=== PATIENT | female | born 1940 | race Two or more races ===

== ENCOUNTER 2017-07-14 01:18 | Inpatient (IN) | payer MEDICARE, OTHER ==
[~2017-07-14] VITALS: Ht 162.6 cm; Wt 68.9 kg
[2017-07-14] VITALS (8 sets, daily range): BP systolic 112–146; BP diastolic 62–74
--- NOTE | 2017-07-14 01:50 | NUR ---
PT BIB [facility] WITH A C/O RT HIP PAIN S/P STUBBING HER TOE WHILE GETTING OUT OF THE SHOWER AT 2300 AND TWISTING IN AN AWKWARD POSITION. PT IS AA&O X4. PT TRIAGED AND TAKEN TO ROOM #17.
--- NOTE | 2017-07-14 01:53 | NUR ---
20G IV STARTED IN LFA.
[2017-07-14] MEDS ORDERED: ONDANSETRON HCL/PF 4 MG/2 ML VIAL ONE (01:55)
[2017-07-14] MEDS ORDERED: MORPHINE SULFATE INJ 4 MG/ML DISP.SYRIN ONE ×3 (01:55→06:05)
[2017-07-14] MEDS ORDERED: ONDANSETRON HCL/PF 4 MG/2 ML VIAL IVP ONE (02:00)
[2017-07-14] MEDS ORDERED: MORPHINE SULFATE INJ 2 MG/ML DISP.SYRIN IV ONE (02:00)
--- NOTE | 2017-07-14 02:00 | NUR ---
XRAY IN PROGRESS AT THE BEDSIDE.
--- NOTE | 2017-07-14 02:23 | NUR ---
LOG MANAGER FOR [facility] WAS PAGED
[2017-07-14 02:34] LABS: BASOPHILS % (AUTO) 0.4 % (0.0-2.0); EOSINOPHILS # (AUTO) 0.1 /CMM (0.0-0.7); EOSINOPHILS % (AUTO) 1.1 % (0.0-6.0); HEMATOCRIT 35 % (33-45); HEMOGLOBIN 12.3 g/dL (11.5-14.8); LYMPHOCYTES # (AUTO) 2.1 /CMM (0.8-4.8); MEAN CORPUSCULAR HEMOGLOBIN 33 PG (26.0-33.0); MEAN CORPUSCULAR HGB CONC 35 g/dl (31.0-36.0); MEAN CORPUSCULAR VOLUME 95 fL (82-100); MONOCYTES # (AUTO) 0.9 /CMM (0.1-1.30); MONOCYTES % (AUTO) 8.3 % (2.0-12.0); NEUTROPHILS # (AUTO) 8.2 /CMM (1.8-8.9); NEUTROPHILS % (AUTO) 72.2 % (43.0-81.0); PLATELET COUNT (AUTO) 257 /CMM (150-450); RDW COEFFICIENT OF VARIATION 14.1 (11.5-15.0); WHITE BLOOD COUNT (AUTO) 11.4 K/uL (4.3-11.0)
[2017-07-14 02:43] LABS: CALCIUM, SERUM 9.1 mg/dL (8.5-10.1); CARBON DIOXIDE 25 mmol/L (21-32); CHLORIDE 105 mmol/L (98-107); GLUCOSE 128 mg/dL (74-106); POTASSIUM 4.2 mmol/L (3.5-5.1); SODIUM SERUM 142 mmol/L (136-145); UREA NITROGEN, BLOOD 27 mg/dL (7-18)
--- NOTE | 2017-07-14 02:52 | NUR ---
PT APPEARS TO BE RESTING COMFORTABLY WITH NO S/S OF PAIN OR DISTRESS. PT IS ON THE MONITOR AND CONTINUOUS PULSE OX. WILL CONT TO MONITOR THE PT.
[2017-07-14 02:56] LABS: INR 0.93 (0.87-1.13); PROTHROMBIN TIME 9.7 SECS (9.5-12.7)
[2017-07-14] MEDS ORDERED: ACETAMINOPHEN 325 MG TABLET PO PRN (03:30)
[2017-07-14] MEDS ORDERED: Z GUARD REMEDY 2 OZ OINT TP PRN (03:30)
[2017-07-14] MEDS ORDERED: ONDANSETRON HCL/PF 4 MG/2 ML VIAL IVP PRN (03:30)
[2017-07-14] MEDS ORDERED: MAGNESIUM HYDROXIDE 30 ML UDC PO PRN (03:30)
[2017-07-14] MEDS ORDERED: MAG HYDROX/AL HYDROX/SIMETH 30 ML UDC PO PRN (03:30)
[2017-07-14] MEDS ORDERED: ZOLPIDEM TARTRATE 5 MG TABLET PO PRN (03:30)
[2017-07-14] MEDS ORDERED: MORPHINE SULFATE INJ 2 MG/ML DISP.SYRIN IV PRN (03:30)
[2017-07-14] MEDS ORDERED: MORPHINE SULFATE INJ 2 MG/ML DISP.SYRIN IV STA (03:38)
--- NOTE | 2017-07-14 03:55 | NUR ---
REPORT GIVEN TO GIANCARLO ROBERTSON
[2017-07-14] MEDS ORDERED: IV NS 0.9% 1,000 ML BAG IV ONE (04:00)
[2017-07-14] MEDS ORDERED: ACET-2605 PO (04:03)
[2017-07-14] MEDS ORDERED: LISI2.5T2 PO (04:03)
[2017-07-14] MEDS ORDERED: CELE100C PO (04:03)
[2017-07-14] MEDS ORDERED: PARO10TA86 PO (04:03)
[2017-07-14] MEDS ORDERED: CALC-20 PO (04:03)
[2017-07-14] MEDS ORDERED: MULT1TAB73 PO (04:03)
--- NOTE | 2017-07-14 04:51 | NUR ---
PT TRANSPORTED TO [facility] VIA GURNEY WITH EMT AND MYSELF.
[2017-07-14] MEDS: IV NS 0.9% 1,000 ML IV PRN (05:21)
--- NOTE | 2017-07-14 06:30 | NUR ---
MS WELLNESS AMBASSADOR NOTES: ADMITTED A 77YO FEMALE FROM HOME WITH A DIAGNOSIS OF RIGHT HIP FRACTURE. PATIENT WAS BROUGHT INTO THE UNIT. PATIENT WITH IV ON LEFT WRIST G#18. PATIENT IS ALERT AND ORIENTED X4. WITH COMPLAINS OF PAIN ON THE RIGHT HIP ARE FROM THE FALL INCIDENT AT HER HOME. ORIENTED PATIENT TO UNIT, CARE PLAN AND DOCTORS.PATIENT'S PAIN LEVEL IS 7 AT THIS TIME OF ASSESSMENT. ADMINISTERED MORPHINE 2MG A PRN ORDER. PLACED CALL LIGHT WITHIN PATIENT'S REACH. IV FLUID ON LEFT WRIST WITH NS @75ML/HR STARTED. IMMOBILIZED PATIENT MUCH POSSIBLE. PATIENT KEPT ON NPO UNTIL FURTHER ORDERS. SKIN ASSESSMENT DONE VISUALLY ONLY PATIENT IS NOT REALLY ABLE TO MOVE THAT MUCH THIS TIME IN RELATION TO THE PAIN. PATIENT CLAIMS TO HAVE NO SKIN ISSUES THIS TIME. ADMISSION ASSESSMENT DONE. WILL CONTINUE TO MONITOR PATIENT. WILL ENDORSE PATIENT TO DAY SHIFT NURSE.
--- NOTE | 2017-07-14 07:53 | NUR ---
MS RN OPENING NOTES. PT RECEIVED A&0X3 AWAKE AND RESTING IN BED. PT TOLERATING ROOM AIR WITH NO SOB. PT REPORTING MINOR HIP PAIN, NO ANALGESIA REQUESTED AT THIS TIME. PT WITH IVC AT L FA INTACT AND OPERATIONAL. ENDORSED PT NPO AT THIS TIME, WILL FOLLOW UP WITH MD. BED IN LOWEST LOCKED POSITION WITH HANDRAILSX2 AND CALL CAMEJO WITHIN REACH. PT BRIEFED ON TODAY'S POC AND IS WITHOUT CONCERN OR COMPLIANT AT THIS TIME.
[2017-07-14] MEDS: MORPHINE SULFATE INJ 4 MG/ML DISP.SYRIN IV PRN ×2 (10:16→13:49)
[2017-07-14] MEDS ORDERED: ANESTHESIA TRAY IN PYXIS 1 EA TRAY MC ONE (17:07)
[2017-07-14] MEDS ORDERED: BUPIVACAINE 0.5 % PF 150 MG/30 ML VIAL ONE (17:07)
[2017-07-14] MEDS ORDERED: BACITRACIN 50000 UNITS/VIAL ONE (17:07)
[2017-07-14] MEDS ORDERED: FENTANYL PF 100MCG/2ML AMPUL ONE (17:54)
[2017-07-14] MEDS ORDERED: MIDAZOLAM HCL 2 MG/2ML VIAL ONE (17:54)
--- NOTE | 2017-07-14 18:19 | NUR ---
RN NOTES. WILL ENDORSE TO NIGHT NURSE FOR KIM.
--- NOTE | 2017-07-14 18:19 | NUR ---
RN NOTES. PT TO SURG. 1520.
--- NOTE | 2017-07-14 19:38 | NUR ---
MS STYLES INITIAL NOTES RECEIVED REPORT FROM AM NURSE REENA PT STILL ON OPERATING ROOM FOR SURGERY .
--- NOTE | 2017-07-14 20:00 | NUR ---
MUSIC EDUCATOR/NOTES RECEIVED PT FROM RECOVERY ROOM ACCOMPANIED BY OR NURSE AND HER SISTER. S/P RIGHT HIP INTRAMEDULLARY RODDING . PT RESTING WITH EYES CLOSED BUT AROUSES TO TOUCH, NO SIGNS OF ANY CUTE DISTRESS NOTED OR ANY DISCOMFORT. IVF STILL INFUSING ON HER LEFT AC PATENT AND INTACT. DVT PUMP CONNECTED ORDERED. DRESSING DRY AND INTACT. KEPT HER WARM AND COMFORTABLE AT ALL TIMES. VITAL SIGNS FF. BP 139/79, PULSE 79, RESP 18 TEMP 98 AND O2 SAT 98 % ON 2 LITERS O2 VIA NC. WILL CONTINUE MONITORING . PLACE CALL LIGHT AT REACH.
[2017-07-15] VITALS: BP 130/80
--- NOTE | 2017-07-15 | NUR ---
MS WEEKEND ANCHOR NOTES PT REMAINS SLEEPING AT THIS TIME. RESPIRATION EVEN AND NON-LABORED, NOT IN ANY DISCOMFORT NOTED. KEPT HER WARM AND COMFORTABLE AT ALL TIMES. PLACE CALL LIGHT AT REACH. WILL CONTINUE TO MONITOR.
[2017-07-15] MEDS: IV NS 0.9% 1,000 ML IV PRN (00:52)
[2017-07-15] MEDS: ANCEF 1 GM/50 ML D5W IV SCH ×6 (01:11→16:06)
[2017-07-15] MEDS: MORPHINE SULFATE INJ 4 MG/ML DISP.SYRIN IV PRN ×2 (05:14→10:40)
--- NOTE | 2017-07-15 07:20 | NUR ---
REPORT RECEIVED AT THE BEDSIDE. PATIENT IS SLEEPING. NO SOB OR DISTRESS NOTED AT THIS TIME. PATIENT DOES NOT APPEAR TO BE IN PAIN, NO FACIAL GRIMACE NOTED. BED IN A LOW POSITION, CALL LIGHT WITHIN PATIENT REACH. WILL CONTINUE TO MONITOR.
--- NOTE | 2017-07-15 07:45 | NUR ---
MONEY COUNTER/CLOSING NOTES PT BACK TO SLEEP AFTER PAIN MEDS GIVEN. AROUSES TO TOUCH AND STATED SHE MUCH FEEL BETTER. STABLE RUBÉN THE NIGHT AND SLEPT WELL. IVF STILL INFUSING. KEPT HER WARM AND COMFORTABLE AT ALL TIMES. SAFETY PRECAUTION IMPLEMENTED AND OBSERVED, ENDORSE TO AM NURSE ALYSA FOR CONTINUITY OF CARE.
[2017-07-15 07:49] LABS: BASOPHILS % (AUTO) 0.3 % (0.0-2.0); HEMATOCRIT 28 % (33-45); HEMOGLOBIN 9.7 g/dL (11.5-14.8); LYMPHOCYTES # (AUTO) 1.1 /CMM (0.8-4.8); LYMPHOCYTES % (AUTO) 20.4 % (20.0-44.0); MEAN CORPUSCULAR HEMOGLOBIN 33 PG (26.0-33.0); MEAN CORPUSCULAR HGB CONC 34 g/dl (31.0-36.0); MEAN CORPUSCULAR VOLUME 96 fL (82-100); MONOCYTES # (AUTO) 0.6 /CMM (0.1-1.30); MONOCYTES % (AUTO) 11.8 % (2.0-12.0); NEUTROPHILS # (AUTO) 3.7 /CMM (1.8-8.9); NEUTROPHILS % (AUTO) 67.5 % (43.0-81.0); PLATELET COUNT (AUTO) 215 /CMM (150-450); RDW COEFFICIENT OF VARIATION 14.1 (11.5-15.0); RED BLOOD CELL COUNT(AUTO) 2.96 MIL/uL (4.0-5.2); WHITE BLOOD COUNT (AUTO) 5.5 K/uL (4.3-11.0)
[2017-07-15 08:03] VITALS: BP 112/54
[2017-07-15 08:13] LABS: CARBON DIOXIDE 28 mmol/L (21-32); CHLORIDE 109 mmol/L (98-107); CREATININE 0.8 mg/dL (0.6-1.3); GLUCOSE 119 mg/dL (74-106); MAGNESIUM 1.9 mg/dL (1.8-2.4); PHOSPHORUS 3.6 mg/dL (2.5-4.9); POTASSIUM 4.5 mmol/L (3.5-5.1); SODIUM SERUM 144 mmol/L (136-145); UREA NITROGEN, BLOOD 16 mg/dL (7-18)
[2017-07-15 09:52] LABS: THYROID STIMULATING HORMONE 0.358 uIU/mL (0.358-3.74)
[2017-07-15] MEDS: HYDROCODONE/APAP 5/325MG 1 EACH TABLET PO PRN ×2 (12:50→20:50)
[2017-07-15 16:00] VITALS: BP 116/55
--- NOTE | 2017-07-15 19:45 | NUR ---
MS JENSEN INITIAL NOTES' SEEN PT SITTING IN THE CHAIR AT THIS TIME WHILE WATCHING TV. SHE STATED SHE 'S OK NOW AND ABLE TO AMBULATE WITH SOME HELPED.DRESSING STILL DRY AND INTACT. BREATHING EVEN AND NON-LABORED, NOT IN ANY ACUTE DISTRESS NOTED. IVF STILL INFUSING NO REDNESS NOTED. KEPT HER WARM AND COMFORTABLE AT ALL TIMES. ENCOURAGE PT OT USE THE CALL LIGHT IF SHE WANTS TO GO BACK TO BED . PLACE CALL LIGHT AT REACH. WILL CONTINUE TO MONITOR.
[2017-07-15 20:00] VITALS: BP 120/55
[2017-07-15] MEDS ORDERED: ENOXAPARIN SODIUM 40 MG/0.4 ML DISP.SYRIN SQ SCH (21:00)
[2017-07-16] MEDS: HYDROCODONE/APAP 5/325MG 1 EACH TABLET PO PRN ×2 (05:27→15:16)
[2017-07-16] MEDS: IV NS 0.9% 1,000 ML IV PRN (05:28)
--- NOTE | 2017-07-16 07:31 | NUR ---
MS RN OPENING NOTES RECEIVED PT ASLEEP IN BED, EASILY AWAKENS. A/O X4, SAME ABLE TO MAKE NEEDS KNOWN, NO C/O PAIN OR DISCOMFORTS AT THIS TIME. IV ACCESS ON LFA G# 18 INTACT AND PATENT WITH IVF OF NS @ 75ML/HR INFUSING, NO SIGNS OF INFILTRATION NOTED. DRESSING ON RIGHT HIP DRY,. CLEAN AND INTACT. ON ROOM AIR, BREATHING EVEN AND NON-LABORED. BED LOCKED AND IN LOW POSITION WITH B/L SIDE-RAILS UP X2. CALL LIGHT WITHIN EASY REACH OF PT. WILL CONTINUE TO MONITOR.
--- NOTE | 2017-07-16 07:55 | NUR ---
MS GUM PULLER CLOSING NOTES PT BAKC TO SLEEP AFTER PAIN MEDS GIVEN. STABLE RUBÉN THE NIGHT AND SLEPT WELL. DRESSING DRY AND INTACT. KEPT HER WARM AND COMFORTABLE AT ALL TIMES. WILL ENDORSE TO AM NURSE FOR CONTINUITY OF CARE.
[2017-07-16 08:00] VITALS: BP 125/89
[2017-07-16 08:25] LABS: BASOPHILS % (AUTO) 0.2 % (0.0-2.0); EOSINOPHILS # (AUTO) 0.1 /CMM (0.0-0.7); EOSINOPHILS % (AUTO) 1.1 % (0.0-6.0); HEMATOCRIT 26 % (33-45); HEMOGLOBIN 9.2 g/dL (11.5-14.8); LYMPHOCYTES # (AUTO) 1.4 /CMM (0.8-4.8); LYMPHOCYTES % (AUTO) 21.4 % (20.0-44.0); MEAN CORPUSCULAR HEMOGLOBIN 33 PG (26.0-33.0); MEAN CORPUSCULAR HGB CONC 35 g/dl (31.0-36.0); MEAN CORPUSCULAR VOLUME 94 fL (82-100); MONOCYTES # (AUTO) 0.8 /CMM (0.1-1.30); MONOCYTES % (AUTO) 11.3 % (2.0-12.0); NEUTROPHILS # (AUTO) 4.4 /CMM (1.8-8.9); PLATELET COUNT (AUTO) 193 /CMM (150-450); RED BLOOD CELL COUNT(AUTO) 2.81 MIL/uL (4.0-5.2); WHITE BLOOD COUNT (AUTO) 6.7 K/uL (4.3-11.0)
[2017-07-16 09:06] LABS: ALANINE AMINOTRANSFERASE 22 U/L (12-78); ALBUMIN 2.6 g/dL (3.4-5.0); ALKALINE PHOSPHATASE 62 U/L (46-116); ASPARTATE AMINOTRANSFERASE 30 U/L (15-37); BILIRUBIN,TOTAL 0.3 mg/dL (0.2-1.0); CALCIUM, SERUM 8.2 mg/dL (8.5-10.1); CARBON DIOXIDE 27 mmol/L (21-32); CHLORIDE 107 mmol/L (98-107); CREATININE 0.8 mg/dL (0.6-1.3); GLUCOSE 122 mg/dL (74-106); MAGNESIUM 1.9 mg/dL (1.8-2.4); PHOSPHORUS 2.1 mg/dL (2.5-4.9); POTASSIUM 3.8 mmol/L (3.5-5.1); SODIUM SERUM 142 mmol/L (136-145); TOTAL PROTEIN, SERUM 5.9 g/dL (6.4-8.2); UREA NITROGEN, BLOOD 15 mg/dL (7-18)
[2017-07-16] MEDS: MORPHINE SULFATE INJ 4 MG/ML DISP.SYRIN IV PRN (10:23)
[2017-07-16] MEDS ORDERED: K PHOS NEUTRAL 250 MG TABLET PO ONE (14:30)
[2017-07-16 16:07] VITALS: BP 127/60
--- NOTE | 2017-07-16 18:10 | NUR ---
RN DISCHARGED NOTES PATIENT DISCHARGED TO [facility] FOR REHABILITATION. A/O X4 AND VERBALLY RESPONSIVE . ALL NEEDS AND CARE ATTENDED WELL. PT LEFT UNIT AT 17OO VIA GURNEY WITH 2 EMT'S AND PT'S SISTER. NO SIGNS OF DISTRESS NOTED DURING DISCHARGE. V/S TAKEN AND RECORDED. PT REFUSED PHOTOS TO BE TAKEN ON HER OPERATIONAL SITES ON RIGHT HIP, STATED THAT DR GILLILAND JUST CHANGED THE DRESSING TODAY. BELONGINGS CHECKED, COUNTED AND SIGNED FORM. HEALTH TEACHINGS GIVEN AND VERBALIZED UNDERSTANDING. REPORT GIVEN TO CHARGE NURSE [facility]. MD AND CHARGE NURSE AWARE OF DISCHARGE.
== END 2017-07-16 16:45 | DRG 480 ==
LOC: ER 01:21 → MED 03:52
PROVIDERS: ADMIT Internal Medicine; ATTEND Internal Medicine
PROC: 0QS606Z Reposition Right Upper Femur with Intramedullary Internal Fixation Device, Open Approach (ICD-10-PCS; principal; 2017-07-14 18:17)
DX: S72.21XA Displaced subtrochanteric fracture of right femur, initial encounter for closed fracture (principal); N17.0 Acute kidney failure with tubular necrosis; D72.828 Other elevated white blood cell count; I10 Essential (primary) hypertension; X58.XXXA Exposure to other specified factors, initial encounter; Y93.E1 Activity, personal bathing and showering; Y92.002 Bathroom of unspecified non-institutional (private) residence as the place of occurrence of the external cause
CPT/HCPCS: 36415; 71045-TC; 73501; 73502; 80048-TC; 80053-TC; 82728-TC; 82962-TC; 83540-TC; 83735-TC; 84100-TC; 84439-TC; 84443-TC; 85025-TC; 85730-TC; 86850-TC; 87081-TC; 88305-TC; 88311-TC; 93307-TC; 97110-TC; 97116-TC; 97530-TC; A4606; A6209; A6402; C1713; J0690; J1650; J2250; J2270; J2405; J2704; J3010; J3490; J7030; J7060; Z7610